=== PATIENT | male | born 1985 ===

== ENCOUNTER 2022-07-10 11:35 | Day surgery (SDC) | payer OTHER ==
[~2022-07-10] VITALS: Ht 167.6 cm; Wt 71.6 kg
[2022-07-10 12:03] VITALS: BP 147/95; PULSE 66; TEMP 98.3
[2022-07-10] MEDS ORDERED: PERCOCET 325 MG1 TA2 PO (14:42)
[2022-07-10] MEDS ORDERED: MOTRIN 600600 MG/TAB PO (14:43)
[2022-07-10 15:05] VITALS: BP 130/90; PULSE 80; TEMP 98.6
[2022-07-10 15:20] VITALS: BP 125/84; PULSE 80
[2022-07-10 15:35] VITALS: BP 125/88; PULSE 79
[2022-07-10 16:00] VITALS: BP 129/90; PULSE 80
--- NOTE | 2022-07-10 16:14 | NUR ---
PATIENT IS ABLE TO URINATE AT THIS TIME WITHOUT DIFFICULTY, HE DID STATE THAT HE WAS HAVING SOME PRESSURE ON HIS ABDOMEN AND SOME DISCOMFORT BUT DOES NOT RATE IT. PT IS ALERT AND ORIENTED X4, VSS, LSCTAB.
--- NOTE | 2022-07-10 16:18 | NUR ---
1505 - PT arrives from PACU w/ Sirisha BILL. Monitors applied and VSS. x3 lap sites are clean dry and intact. PT sleeps unless aroused; denies current pain. Warm blankets provided. PT oriented to room and call stevens within reach; visitor remains present. PT provided water and is tolerating well. Side rails x2 and non-slip socks are on. Will monitor per intervals. 1520 - VSS. PT continues to sleep. Call stevens within reach and side rails 2 continue. 1535 - VSS and PT is drowsy but awake and oriented. Snack provided per PT request. PT assisted respositioning in bed. PT is tolerating snack well. Call stevens remains within reach and side rails continue.
== END 2022-07-10 16:40 ==
LOC: SDCO 11:35
DX: K40.20 Bilateral inguinal hernia, without obstruction or gangrene, not specified as recurrent (principal); F17.290 Nicotine dependence, other tobacco product, uncomplicated
CPT/HCPCS: C1781; J0690; J1100; J1885; J2405; J2704; J3010; J7120

== ENCOUNTER 2023-06-07 05:42 | Day surgery (SDC) | payer OTHER ==
[~2023-06-07] VITALS: Ht 165.1 cm; Wt 70.6 kg
[~2023-06-07 05:42] MED LIST: MOTRIN 600600 MG/TAB PO; PERCOCET 325 MG1 TA2 PO
[2023-06-07 06:45] VITALS: BP 145/98; PULSE 63; TEMP 97.9
--- NOTE | 2023-06-07 07:09 | NUR ---
0524 Pt ambulatory to bay 1 with steady gait, breathing even and unlabored. Pt is alert and oriented, accompanied today by his . Consents reviewed and signed by pt. IV established. LR infusing via gravity at KVO. Call light in reach. Warm blanket provided.
[2023-06-07] MEDS ORDERED: MOTRIN 600600 MG/TAB PO (07:43)
[2023-06-07] MEDS ORDERED: PERCOCET 325 MG1 TA2 PO (07:43)
[2023-06-07 09:05] VITALS: BP 143/98; PULSE 68; TEMP 97.7
--- NOTE | 2023-06-07 09:05 | NUR ---
PATIENT RETURNED TO ROOM 1 VIA CART, ALERT AND ORIENTED X3. DENIES PAIN, NAUSEA AND SHORTNESS OF BREATH. BREATHING REGULAR AND UNLABORED ON ROOM AIR. SKIN WARM AND DRY. BILATERAL RADIAL PULSES 3+ REGULAR. BILATERAL PEDAL PULSES 2+ REGULAR. NURSE HANDOFF COMPLETED IN ROOM. SEE CHART FOR DETAILS. SURGICAL INCISION WITH SKIN GLUE CLOSURE PRESENT TO RIGHT LOWER ABDOMEN. SURGICAL SITE IS CLEAN AND DRY WITH SKIN GLUE INTACT. ABDOMEN SOFT AND NONDISTENDED. PATIENT HAD ORANGE JUICE AND A MUFFIN. BOTH FOOD AND DRINK TOLERATED WELL. SPOUSE, [facility], PRESENT IN ROOM. CALL LIGHT IN REACH.
[2023-06-07 09:15] VITALS: BP 137/94; PULSE 71
[2023-06-07 09:30] VITALS: BP 125/75; PULSE 73
[2023-06-07 09:45] VITALS: BP 138/91; PULSE 67
--- NOTE | 2023-06-07 10:18 | NUR ---
1000: PATIENT AMBULATED TO RESTROOM WITH STEADY GAIT AND VOIDED WITHOUT DIFFICULTY. DISCHARGE TEACHING COMPLETED WITH PRINTED EDUCATION AND INSTRUCTIONS SENT HOME WITH PATIENT AND SPOUSE. FOLLOW UP APPOINTMENT DATE, TIME AND LOCATION COMMUNICATED TO PATIENT. PATIENT AND SPOUSE VERBALIZED UNDERSTANDING OF TEACHING. PATIENT DENIES PAIN, NAUSEA AND SHORTNESS OF BREATH. STATES LOWER ABDOMEN IS SORE, BUT TOLERABLE. ICE APPLIED. DENIES ADDITIONAL INTERVENTIONS. IV REMOVED. GAUZE AND COBAN PLACED OVER SITE. PATIENT CHANGED INTO PERSONAL CLOTHING AND DISCHARGED HOME WITH [facility].
== END 2023-06-07 10:18 | disposition home or self-care (01) ==
LOC: SDCO 05:42
DX: K40.91 Unilateral inguinal hernia, without obstruction or gangrene, recurrent (principal)
CPT/HCPCS: C1781; J0690; J1100; J1885; J2405; J2704; J3010; J7120